=== PATIENT | male | born 1990 ===

== ENCOUNTER 2024-10-05 23:06 | Emergency (ER) | payer SELFPAY ==
[2024-10-06] MEDS: Ketorolac 30 MG/ML SDV IM ONE (01:37)
== END 2024-10-06 01:40 | disposition home or self-care (01) ==
LOC: DL.ED 23:06
DX: S92.352B Displaced fracture of fifth metatarsal bone, left foot, initial encounter for open fracture (principal); W22.8XXA Striking against or struck by other objects, initial encounter; Y93.89 Activity, other specified
CPT/HCPCS: 73630; 96372; 99283; 99284; J1885